=== PATIENT | female | born 1960 | race Caucasian/White ===

== ENCOUNTER → 2016-12-01 | Outpatient (CLI) | payer BC ==
--- NOTE | 2016-12-01 12:30 | PCVCIMAG ---
EXAM: BILATERAL RENAL ULTRASOUND AND BILATERAL RENAL DUPLEX INDICATION: Hypertension FINDINGS: Right kidney: Length measures 10.6 cm. No hydronephrosis or extensive renal scarring. Right renal duplex: Adequate technical quality. No sonographic evidence of renal artery stenosis. The aortic to renal artery ratio is 1.7. The renal vein is patent. Left kidney: Length measures 10.4 cm. No hydronephrosis or extensive renal scarring. Left renal duplex: Adequate technical quality. No sonographic evidence of renal artery stenosis. The aortic to renal artery ratio is 1.5. The renal vein is patent. Bladder: No obvious abnormalities. IMPRESSION: No significant renal artery stenosis. No hydronephrosis bilaterally. LOC:[id number]
--- NOTE | 2016-12-01 17:08 | PCVCIMAG ---
APPROVED REPORT Study performed: 12/01/2016 09:53:45 EXAM: Comprehensive 2D, Doppler, and color-flow Echocardiogram Patient Location: Echo lab Status: routine BSA: 1.53 HR: 54 bpmBP: 142/80 mmHg Rhythm: NSR, Bradycardia Other Information Study Quality: Adequate Risk Factors: Cardiac Risk Factors: HTN, Hyperlipidemia, Smoking Indications left arm pain 2D Dimensions LVEF(%): 61.23 (>50%) IVSd: 10.51 (7-11mm) LVDd: 45.13 mm PWd: 9.94 (7-11mm) LVDs: 30.38 (25-40mm) Left Atrium: 35.25 (27-40mm) Aortic Root: 29.34 mm LV Single Plane 4CH: 68.52 % LV Single Plane 2CH: 72.30 %Healy's LVEF: 70.41 % Biplane EF: 69.7 % Volumes Left Atrial Volume (Systole) Single Plane 4CH: 46.40 mLSingle Plane 2CH: 58.88 mL LA ESV Index: 35.00 mL/m2 Aortic Valve AoV Peak Iván.: 1.58 m/s AO Peak Gr.: 9.93 mmHgLVOT Max P.33 mmHg LVOT Max V: 1.04 m/s AI Vmax: 4.90 m/s AI [place]: 2.35 m/s2 AI PHT: 604.97 ms Mitral Valve E/A Ratio: 1.3 MV Decel. Time: 214.75 ms MV E Max Iván.: 0.70 m/s MV A Iván.: 0.53 m/s IVRT: 93.43 ms TDI E/Lateral E': 11.10E/Medial E': 10.40 Pulmonary Valve PV Peak Iván.: 1.15 m/sPV Peak Gr.: 5.32 mmHg Pulmonary Vein P Vein S: 0.45 m/sP Vein A: 0.40 m/s P Vein D: 0.52 m/sP Vein A Dur.: 147.6 msec P Vein S/D Ratio: 0.87 Left Ventricle The left ventricle is normal size. There is normal LV segmental wall motion. There is normal left ventricular wall thickness. Left ventricular systolic function is normal. The left ventricular ejection fraction is within the normal range. LVEF is 65%. Right Ventricle The right ventricle is normal size. The right ventricular systolic function is normal. Atria The left atrium size is normal. The right atrium size is normal. Aortic Valve The aortic valve is minimally sclerotic Mild aortic regurgitation. There is no aortic valvular stenosis. Mitral Valve The mitral valve is normal in structure. No mitral regurgitation. No evidence of mitral valve stenosis. Tricuspid Valve The tricuspid valve is normal in structure. There is no tricuspid valve regurgitation noted. Pulmonic Valve The pulmonary valve is normal in structure. Trace pulmonic regurgitation. Great Vessels The aortic root is normal in size. IVC is normal in size and collapses with >50% inspiration Pericardium There is no pericardial effusion. <Conclusion> Left ventricular systolic function is normal. There is normal LV segmental wall motion. LVEF is 65%. The aortic valve is minimally sclerotic. Mild aortic regurgitation, no stenosis. The mitral valve is normal in structure. No mitral regurgitation. Pulmonary artery pressure could not be reliably ascertained. There is no pericardial effusion.
== END | disposition home or self-care (01) ==
LOC: PCVCIMAG 08:45
PROVIDERS: ATTEND Internal Medicine
DX: I35.1 Nonrheumatic aortic (valve) insufficiency (principal); I37.1 Nonrheumatic pulmonary valve insufficiency; F17.200 Nicotine dependence, unspecified, uncomplicated; I10 Essential (primary) hypertension
CPT/HCPCS: 76770; 93017; 93306; 93975